=== PATIENT | female | born 1935 | race Caucasian/White ===

== ENCOUNTER → 2017-08-24 | Day surgery (SDC) | payer MEDICARE, BC ==
[2017-08-24 11:48] VITALS: RESP 16; BMI 18.8
[2017-08-24 13:45] VITALS: BP 137/73; PULSE 64; TEMP 97.6
--- NOTE | 2017-08-24 14:04 | USB ---
ULTRASOUND GUIDED CORE BIOPSY RIGHT BREAST: CLINICAL HISTORY: Abnormal ultrasound FINDINGS: The procedure was explained to the patient. The risks, complications, benefits and alternatives were discussed and any questions were answered. Informed consent was obtained. Patient was placed supine on the ultrasound table and prepped and draped in the usual sterile fashion. Utilizing a 14 gauge needle, five passes were made into the area of concern in the subareolar portion right breast. Previously reported 5:00 lesion was not seen or reproducible on today's exam and therefore cannot be biopsied. Biopsy clip was placed post procedural and subsequent mammogram demonstrated the clip to be in ideal position. Patient was stable throughout the procedure. Pathology is pending. All elements of maximal barrier and sterile technique were utilized. IMPRESSION: 1. Successful ultrasound guided core biopsy of the subareolar right breast requested lesion. Pathology Results: Benign BREAST, RIGHT, CORE BIOPSY: BENIGN BREAST AND FIBROADIPOSE TISSUE WITH PROMINENT FIBROSIS. Recommendation Follow up ultrasound of the right breast in 6 months. Surgical consult to assess nipple discharge symptoms. MALVIN
--- NOTE | 2017-08-24 14:25 | MM ---
Reason for exam: additional evaluation requested from abnormal screening. Last mammogram was performed 1 month ago. History: Patient is postmenopausal and has history of other cancer at age 39. Took estrogen for 15 years. MG Diagnostic Mammo RT Wo CAD CC and MLO view(s) were taken of the right breast. Prior study comparison: July 28, 2017, bilateral MG 3d diag mammo w/cad JANIE. July 27, 2016, bilateral MG 3d screening mammo w/cad. ASSESSMENT: Post procedure mammogram for marker placement RECOMMENDATION: Ultrasound of the right breast in 6 months. PENDING PATHOLOGY RESULTS.
== END ==
LOC: RADUSWWP 11:15
PROVIDERS: ATTEND Surgery
DX: N60.31 Fibrosclerosis of right breast (principal); Z78.0 Asymptomatic menopausal state; Z85.9 Personal history of malignant neoplasm, unspecified
CPT/HCPCS: 88305; 77065; 19083; A4648; J2001

== ENCOUNTER 2019-05-14 07:27 | Emergency (ER) | payer MEDICARE, BC ==
--- NOTE | 2019-05-14 08:31 | CT ---
EXAMINATION TYPE: CT brain donis donahue con DATE OF EXAM: 05/14/2019 COMPARISON: Previous study dated 03/07/2016. HISTORY: Fall today. head and neck pain CT DLP: 1297.3 mGycm Automated exposure control for dose reduction was used. TECHNIQUE: CT scan of the head and cervical spine are performed without contrast. FINDINGS: BRAIN: There are generalized changes of sulcal prominence and ventriculomegaly, compatible with atrop hic change. There is diffuse periventricular white matter lucency, compatible with chronic white mamie er ischemic change. There is no acute focal lesion, mass effect or midline shift identified. I do not see evidence of intracranial blood. Visualized portions of the paranasal sinuses and mastoids are clear. The bony calvarium is intact. IMPRESSION: 1. NO ACUTE INTRACRANIAL ABNORMALITY. 2. DEGENERATIVE CHANGE. CERVICAL SPINE: Visualized portions of the lungs are clear. Prevertebral soft tissues are normal. There is a loss of the normal cervical lordosis. There is a minimal anterolisthesis of C3 on C4 and a n antegrade and grade 1 listhesis of C5 on C6. Alignment is otherwise maintained. Atlantoaxial relati onships are normal. There is diffuse degenerative disc disease and hypertrophic spondylosis throughou t the cervical spine with relative sparing C2-3 level. There is mild, diffuse degenerative disc disea se. There is mild facet arthropathy at C3-4 level. There is right-sided facet arthropathy at C4-5 lev el. No definite protrusion is seen. There is a wedge compression fracture of the T3 vertebral body. T his is wedged by approximately 30%. This was not visualized on the previous examination as the study did not extend this far inferiorly. It appears is likely chronic on this study. No other fractures ar e seen. IMPRESSION: 1. 30% WEDGE COMPRESSION FRACTURE OF THE T3 VERTEBRAL BODY, AGE NOT DETERMINED. PLEASE CORRELATE CLIN ICALLY. 2. DEGENERATIVE CHANGE.
--- NOTE | 2019-05-14 09:07 | ED ---
Fall HPI - General Chief Complaint: Fall Stated Complaint: Fall Time Seen by Provider: 05/14/19 07:32 Source: patient Mode of arrival: EMS - History of Present Illness Initial Comments: 83 year old female presents emergency department for chief complaint of fall. Patient states that she has a bedside commode which she is supposed to use ever she wants walk to the bathroom she states that she used her walker lost her balance falling onto her bottom. Patient complaining of low back pain. Denies hip pain. Denies knee, ankle or UE pain. Patient states she did not have neck pain until the c-collar was applied, she states it is very uncomfortable especially with her head tremors (history of possible parkinsons). Patient denies any headache dizziness. Patient has a chest pain shortness of breath, visual changes. Patient unsure if she hit her head. Denies LOC. Denies anticoagulation use. Patient has no other complaints. Appears well on arrival c- collar in place. - Related Data Home Medications Medication Instructions Recorded Confirmed Latanoprost Ophth [Xalatan 0.005%] 1 drops BOTH EYES HS 03/07/16 05/14/19 Levothyroxine Sodium [Tirosint] 25 mcg PO DAILY 03/07/16 05/14/19 Donepezil [Aricept] 10 mg PO DAILY 05/14/19 05/14/19 QUEtiapine [SEROquel] 12.5 mg PO DAILY@1600 05/14/19 05/14/19 Allergies Allergy/AdvReac Type Severity Reaction Status Date / Time codeine AdvReac Nausea & Verified 05/14/19 08:10 Vomiting Review of Systems ROS Statement: Those systems with pertinent positive or pertinent negative responses have been documented in the HPI. ROS Other: All systems not noted in ROS Statement are negative. Past Medical History Past Medical History: Dementia, Thyroid Disorder Additional Past Medical History / Comment(s): alzheimers History of Any Multi-Drug Resistant Organisms: None Reported Past Surgical History: Section, Hysterectomy Past Anesthesia/Blood Transfusion Reactions: No Reported Reaction Past Psychological History: No Psychological Hx Reported Smoking Status: Never smoker Past Alcohol Use History: None Reported Past Drug Use History: None Reported General Exam - General Exam Comments Initial Comments: General: The patient is awake and alert, in no distress, and does not appear acutely ill. Eye: +3 mm pupils are equal, round and reactive to light, extra-ocular movements are intact. No nystagmus. No APD. There is normal conjunctiva bilaterally. No signs of icterus. Ears, nose, mouth and throat: There are moist mucous membranes and no oral lesions. No raccoon or Freitas sign. No scalp contusions abrasions or lacerations. Neck: The neck is supple, there is no tenderness or JVD. Cardiovascular: There is a regular rate and rhythm. No murmur, rub or gallop is appreciated. Respiratory: Lungs are clear to auscultation, respirations are non-labored, breath sounds are equal. No wheezes, stridor, rales, or rhonchi. Gastrointestinal: Soft, non-distended, non-tender abdomen without masses or organomegaly noted. There is no rebound or guarding present. Musculoskeletal: Normal inspection of the cervical thoracic and lumbar spine. Patient has pain over the upper lumbar spine. Patient has no thoracic pain no midline tenderness to patient the cervical spine or paravertebral. Normal ROM, no tenderness. Strength 5/5 of the LE b/l able to stand but pain with walking. Sensation intact of the LE b/l including saddle region. Radial pulses equal bilaterally 2+. Neurological: A&O x 2 difficulty with date (normal per ). CN II-XII int act, There are no obvious motor or sensory deficits. Hand tremors. Speech is normal. Head tremor Skin: Skin is warm and dry and no rashes or lesions are noted. Psychiatric: Cooperative, appropriate mood & affect, normal judgment. Limitations: altered mental status Course Vital Signs 05/14/19 05/14/19 05/14/19 07:31 09:52 11:06 Temperature 97.6 F Pulse Rate 77 81 62 Respiratory 20 18 18 Rate Blood Pressure 147/80 138/74 118/59 O2 Sat by Pulse 96 94 L 94 L Oximetry 05/14/19 12:45 Temperature 98 F Pulse Rate 68 Respiratory 18 Rate Blood Pressure 120/78 O2 Sat by Pulse 98 Oximetry Medical Decision Making - Medical Decision Making 83-year-old female presenting for chief complaint of fall. Patient denies head injury however she states she is not certain. Patient does have history of dementia. No loss of conscious. No anticoagulation use. Patient states his mechanical fall she lost her balance when using her walker to ambulate. Patient has traumatic examination otherwise is no focalizing neurological symptoms. Patient states she fell on her bottom complaining of low back pain there is point localized midline lumbar pain. X-rays reveal a possible acute L1 fracture I feel this clinically correlates to be acute. We contacted on-call orthopedic surgeon physician hotel administrative assistant Amado Cruz who spoke with his attending reviewed imaging studies. He recommended LSO brace and f/u in office. Patient guardian requesting discharge home. Patient stays at a [facility]. Patient is agreeable with this care plan, refuses pain medications stating codeine makes her itch, patient instructed to take ibuprofen outpatient. Patient cased discussed with Dr. Pepe who reviewed imaging studies and reports. He is agreeable with discharge at this time. Disposition Clinical Impression: Fall, L1 vertebral fracture, Compression fracture of T3 vertebra Disposition: HOME SELF-CARE Condition: Good Instructions (If sedation given, give patient instructions): Vertebral Compression Fracture (ED), Fall Prevention for Older Adults (ED) Additional Instructions: Please use medication as discussed. Please follow-up with family doctor in the next 2 days, and Dr Dave in office in 1-2 weeks. Please keep brace on while ambulating. Please return to emergency room if the symptoms increase or worsen or for any other concerns. Is patient prescribed a controlled substance at d/c from ED?: No Referrals: Alphonso Berrios MD [Primary Care Provider] - 1-2 days Alyx Dave DO [Doctor of Osteopathic Medicine] - 1-2 days Time of Disposition: 12:20
--- NOTE | 2019-05-14 09:26 | XR ---
EXAMINATION TYPE: XR chest 2V DATE OF EXAM: 05/14/2019 HISTORY: fall. REFERENCE: Previous study dated 03/14/2010. FINDINGS: There is minimal left basilar atelectasis. The lungs are otherwise clear. Pleural spaces ar e clear. The heart is mildly enlarged. No acute osseous lesion is seen. IMPRESSION: 1. PLATELIKE ATELECTASIS, LEFT LUNG BASE. 2. MILD CARDIOMEGALY.
--- NOTE | 2019-05-14 09:27 | XR ---
EXAMINATION TYPE: XR pelvis AP view , ONE VIEW DATE OF EXAM ORDERED: 05/14/2019 HISTORY: fall low back pain. COMPARISON: None. FINDINGS: Bony structures about the pelvis are unremarkable. No fracture or dislocation is seen. Hip joints are maintained. IMPRESSION: NORMAL PELVIS.
--- NOTE | 2019-05-14 09:29 | XR ---
EXAMINATION TYPE: XR lumbar spine 2 or 3V , 3 VIEWS DATE OF EXAM ORDERED: 05/14/2019 HISTORY: pain. COMPARISON: None. FINDINGS: There is a degenerative grade 1 bordering on grade 2 spondylolisthesis of L4 on L5. Verteb ral body height and alignment are otherwise maintained. There are superior endplate infractions at T1 2 and L1, age not determined. There is no spondylolisthesis. There is facet arthropathy at L4-5 and L 5-S1. The pedicles are intact. Incidental note is made of calcification of the right upper quadrant which may represent gallstones. IMPRESSION: 1. SUPER ENDPLATE INFRACTIONS OF T12 AND L1, AGE NOT DETERMINED. 2. 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 3. PROBABLE CHOLELITHIASIS
[2019-05-14 09:58] VITALS: RESP 18
--- NOTE | 2019-05-14 10:31 | CT ---
EXAMINATION TYPE: CT lumbar spine wo con DATE OF EXAM: 05/14/2019 10:18 AM COMPARISON: None. HISTORY: L1 FX, Fall CT DLP: 462.8 mGycm Automated exposure control for dose reduction was used. Unenhanced CT of the lumbar spine was performed. Bone and soft tissue window settings are submitted as well as coronal and sagittal reconstructions. FINDINGS: There are tiny, bilateral pleural effusions with associated relaxation atelectasis. The hea rt is enlarged. Paraspinal soft tissues are otherwise unremarkable. At T11-12, there is a superior endplate of fracture and the T12 vertebral body. This appears chronic. There is no paraspinal soft tissue mass or clear fracture line visible. At T12-L1, there is a superior endplate infraction of T12. There is a faint fracture line through the vertebral body. I'm unsure the chronicity of this lesion. There is no paraspinal soft tissue mass. L1-L2: No definite abnormality is seen. L2-L3: There is a diffuse disc displacement. Intervertebral foramina are well maintained. There is mi ld hypertrophic change in the facets. L3-L4: Intervertebral foramina are widely patent. There is a broad-based disc protrusion. There is hy pertrophic changes in the facets. There is moderate central canal stenosis. L4-L5: There is a grade 1 bordering on grade 2 degenerative spondylolisthesis of L4 and L5. There is a prominent pseudodisc. There are marked hypertrophic changes within the facets. Intervertebral augustus kaylin appear maintained. L5-S1: There is degenerative disc disease. There is no cyst significant compressive discopathy. Inter vertebral foramina appear well maintained. There are hypertrophic changes IMPRESSION: 1. SEVERE WEDGE COMPRESSION FRACTURE OF T11 APPEARS CHRONIC. 2. SUPERIOR ENDPLATE INFRACTION OF L1 IS AGE-INDETERMINATE. FRACTURE LINE IS STILL VISIBLE WITHOUT PA RASPINAL HEMATOMA OR SOFT TISSUE MASS. 3. DEGENERATIVE DISC DISEASE AND FACET ARTHROPATHY THROUGHOUT THE LUMBAR SPINE. 4. GRADE 1 BORDERING ON GRADE 2 SPONDYLOLISTHESIS OF L4 ON L5 WHICH IS DEGENERATIVE. 5. MODERATE CENTRAL CANAL STENOSIS, L3-4 6. SMALL, BILATERAL PLEURAL EFFUSIONS.
[2019-05-14 12:46] VITALS: BP 120/78; PULSE 68; TEMP 98
== END 2019-05-14 12:45 | disposition home or self-care (01) ==
LOC: EC 07:27
DX: S22.030A Wedge compression fracture of third thoracic vertebra, initial encounter for closed fracture (principal); S32.010A Wedge compression fracture of first lumbar vertebra, initial encounter for closed fracture; R07.9 Chest pain, unspecified; R06.02 Shortness of breath; H53.8 Other visual disturbances; G30.9 Alzheimer's disease, unspecified; F02.80 Dementia in other diseases classified elsewhere, unspecified severity, without behavioral disturbance, psychotic disturbance, mood disturbance, and anxiety; E07.9 Disorder of thyroid, unspecified; Z88.5 Allergy status to narcotic agent; Z79.890 Hormone replacement therapy; Z79.899 Other long term (current) drug therapy; W18.11XA Fall from or off toilet without subsequent striking against object, initial encounter; Y93.01 Activity, walking, marching and hiking; Y92.002 Bathroom of unspecified non-institutional (private) residence as the place of occurrence of the external cause
CPT/HCPCS: 70450; 71046; 72100; 72125; 72131; 72170; 99284

== ENCOUNTER 2019-08-12 19:24 | Inpatient (IN) | payer MEDICARE, BC ==
[2019-08-12 20:03] LABS: Basophils # (A) 0.1 k/uL (0-0.2); Basophils % (A) 1 %; Eosinophils # (A) 0.2 k/uL (0-0.7); Eosinophils % (A) 2 %; HCT 39.3 % (34.0-46.0); HGB 12.5 gm/dL (11.4-16.0); Lymphocytes # (A) 1.7 k/uL (1.0-4.8); Lymphocytes % (A) 24 %; MCH 29.8 pg (25.0-35.0); MCHC 31.7 g/dL (31.0-37.0); MCV 93.8 fL (80.0-100.0); Mean Platelet Volume 8.4; Monocytes # (A) 0.5 k/uL (0-1.0); Monocytes % (A) 8 %; Neutrophils # (A) 4.4 k/uL (1.3-7.7); Neutrophils % (A) 63 %; Platelet Count 240 k/uL (150-450); RBC 4.18 m/uL (3.80-5.40); RDW 12.9 % (11.5-15.5)
--- NOTE | 2019-08-12 20:11 | XR ---
EXAMINATION TYPE: XR chest 2V DATE OF EXAM: 08/12/2019 COMPARISON: 05/14/2019 HISTORY: Chest pain TECHNIQUE: 2 views FINDINGS: There is no heart failure nor confluent pneumonic infiltrate. Costophrenic angles are clear . Thoracic aorta is atheromatous. Bony thorax is intact. IMPRESSION: No active cardiopulmonary disease. No change.
[2019-08-12 20:15] LABS: Albumin 3.9 g/dL (3.5-5.0); Magnesium 2.2 mg/dL (1.6-2.3); Potassium 4.7 mmol/L (3.5-5.1); Total Bilirubin 0.3 mg/dL (0.2-1.3); Total Protein 6.9 g/dL (6.3-8.2)
[2019-08-12 20:22] LABS: Partial Thromboplastin Time 23.9 sec (22.0-30.0); Prothrombin Time 10.4 sec (9.0-12.0)
[2019-08-12] MEDS ORDERED: SODIUM CHLORIDE 0.9% 500 ML 500 ML IV STA (20:43)
--- NOTE | 2019-08-12 21:46 | ED ---
General Adult HPI - General Source: patient, family, RN notes reviewed Mode of arrival: ambulatory Limitations: altered mental status <Frank Hernandez P - Last Filed: 08/12/19 21:47> <Monica Uriarte P - Last Filed: 08/13/19 05:53> - General Chief complaint: Chest Pain Stated complaint: Chest pain Time Seen by Provider: 08/12/19 20:08 - History of Present Illness Initial comments: 83-year-old female with a past medical history of Alzheimer's presents to the emergency department for a chief complaint of chest pain. Patient started to experience chest pain about 2 hours prior to arrival. States he was a sharp pain in the anterior chest. Denies shortness of breath. Patient denies any cardiac history. Patient is staying at an adult foster care facility and they called an ambulance. Patient was given aspirin in the EMS. Upon presentation to the emergency department pain has resolved. Patient does not have cardiac history. Patient does not know of any previous cardiac catheterizations or echo.Patient has no other complaints at this time including shortness of breath, abdominal pain, nausea or vomiting, headache, or visual changes. (Frank Hernandez) - Related Data Home Medications Medication Instructions Recorded Confirmed Latanoprost Ophth [Xalatan 0.005%] 1 drops BOTH EYES HS@1900 03/07/16 08/12/19 Levothyroxine Sodium [Tirosint] 25 mcg PO DAILY@0703/07/16 08/12/19 Donepezil [Aricept] 10 mg PO DAILY@69905/14/19 08/12/19 QUEtiapine [SEROquel] 37.5 mg PO DAILY@69905/14/19 08/12/19 Evaristo/D3/Mag11/Zinc/Animal Assisted Therapist/Trevor/Bor 1 tab PO DAILY@69908/12/19 08/12/19 [Caltrate 600+D Plus Tablet] Cholecalciferol (Vitamin D3) 2,000 unit PO DAILY@69908/12/19 08/12/19 [Vitamin D3] Docusate [Colace] 100 mg PO DAILY@0708/12/19 08/12/19 Escitalopram [Lexapro] 10 mg PO DAILY@0708/12/19 08/12/19 Ibuprofen [Motrin] 400 mg PO QID@04,10,16,22 08/12/19 08/12/19 QUEtiapine [SEROquel] 50 mg PO DAILY@1600 08/12/19 08/12/19 Allergies Allergy/AdvReac Type Severity Reaction Status Date / Time codeine AdvReac Nausea & Verified 08/12/19 22:19 Vomiting Review of Systems ROS Other: All systems not noted in ROS Statement are negative. <Frank Hernandez P - Last Filed: 08/12/19 21:47> ROS Other: All systems not noted in ROS Statement are negative. <Monica Uriarte P - Last Filed: 08/13/19 05:53> ROS Statement: Those systems with pertinent positive or pertinent negative responses have been documented in the HPI. Past Medical History Past Medical History: Dementia, Thyroid Disorder Additional Past Medical History / Comment(s): alzheimers History of Any Multi-Drug Resistant Organisms: None Reported Past Surgical History: Section, Hysterectomy Past Anesthesia/Blood Transfusion Reactions: No Reported Reaction Past Psychological History: No Psychological Hx Reported Smoking Status: Never smoker Past Alcohol Use History: None Reported Past Drug Use History: None Reported <Frank Hernandez P - Last Filed: 08/12/19 21:47> General Exam Limitations: altered mental status General appearance: alert, in no apparent distress Head exam: Present: atraumatic, normocephalic, normal inspection Eye exam: Present: normal appearance, PERRL, EOMI. Absent: scleral icterus, c onjunctival injection, periorbital swelling ENT exam: Present: normal exam, mucous membranes moist Neck exam: Present: normal inspection, full ROM. Absent: tenderness, meningismus, lymphadenopathy Respiratory exam: Present: normal lung sounds bilaterally. Absent: respiratory distress, wheezes, rales, rhonchi, stridor Cardiovascular Exam: Present: regular rate, normal rhythm, normal heart sounds. Absent: systolic murmur, diastolic murmur, rubs, gallop, clicks GI/Abdominal exam: Present: soft, normal bowel sounds. Absent: distended, tenderness, guarding, rebound, rigid Neurological exam: Present: alert <Frank Hernandez P - Last Filed: 08/12/19 21:47> Course Vital Signs 08/12/19 08/12/19 08/12/19 19:25 21:05 21:10 Temperature 98.2 F 97.6 F Pulse Rate 64 59 L Respiratory 18 18 Rate Blood Pressure 144/65 91/52 136/61 O2 Sat by Pulse 95 96 Oximetry 08/12/19 08/12/19 08/13/19 21:50 23:39 04:03 Temperature 97.9 F 97.9 F Pulse Rate 60 57 L 59 L Respiratory 16 16 16 Rate Blood Pressure 152/65 146/63 145/62 O2 Sat by Pulse 97 95 95 Oximetry Medical Decision Making - Lab Data Result diagrams: 08/12/19 19:58 08/12/19 19:58 <Frank Hernandez - Last Filed: 08/12/19 21:47> - Lab Data Result diagrams: 08/12/19 19:58 08/12/19 19:58 <Monica Uriarte - Last Filed: 08/13/19 05:53> - Medical Decision Making Vitals are stable. There is 1 according of hypotension with a blood pressure of 91/52 however this was repeated shortly after and was 136/61. Patient's pain had resolved upon my seeing her. CBC is unremarkable. CMP does show some evidence of dehydration. Troponin negative. X-ray shows no active cardi opulmonary disease. EKG shows a normal sinus rhythm with a ventricular rate of 60. No ST elevation or depression. Given recent onset of chest pain within 3 hours of arrival patient will be admitted for trending troponin and cardiology consultation. Discussed this case with Dr. Uriarte (Frank Hernandez) I personally saw and evaluated the patient, this is a pleasantly demented hemodynamically stable 83-year-old who had reported chest pain. Labs are relatively unremarkable there is some signs of dehydration IV fluids were ordered. Patient will be patient and observation of her sterile troponins and evaluation by cardiology. (Monica Uriarte) - Lab Data Lab Results 08/12/19 08/12/19 08/12/19 Range/Units 19:58 19:58 19:58 WBC 7.0 (3.8-10.6) k/uL RBC 4.18 (3.80-5.40) m/uL Hgb 12.5 (11.4-16.0) gm/dL Hct 39.3 (34.0-46.0) % MCV 93.8 (80.0-100.0) fL MCH 29.8 (25.0-35.0) pg MCHC 31.7 (31.0-37.0) g/dL RDW 12.9 (11.5-15.5) % Plt Count 240 (150-450) k/uL Neutrophils % 63 % Lymphocytes % 24 % Monocytes % 8 % Eosinophils % 2 % Basophils % 1 % Neutrophils # 4.4 (1.3-7.7) k/uL Lymphocytes # 1.7 (1.0-4.8) k/uL Monocytes # 0.5 (0-1.0) k/uL Eosinophils # 0.2 (0-0.7) k/uL Basophils # 0.1 (0-0.2) k/uL PT 10.4 (9.0-12.0) sec INR 1.0 (<1.2) APTT 23.9 (22.0-30.0) sec Sodium 138 (137-145) mmol/L Potassium 4.7 (3.5-5.1) mmol/L Chloride 106 (98-107) mmol/L Carbon Dioxide 25 (22-30) mmol/L Anion Gap 7 mmol/L BUN 28 H (7-17) mg/dL Creatinine 1.12 H (0.52-1.04) mg/dL Est GFR (CKD-EPI)AfAm 52 (>60 ml/min/1.73 sqM) Est GFR (CKD-EPI)NonAf 45 (>60 ml/min/1.73 sqM) Glucose 100 H (74-99) mg/dL Calcium 10.0 (8.4-10.2) mg/dL Magnesium 2.2 (1.6-2.3) mg/dL Total Bilirubin 0.3 (0.2-1.3) mg/dL AST 31 (14-36) U/L ALT 18 (4-34) U/L Alkaline Phosphatase 66 (38-126) U/L Troponin I (0.000-0.034) ng/mL Total Protein 6.9 (6.3-8.2) g/dL Albumin 3.9 (3.5-5.0) g/dL 08/12/19 Range/Units 19:58 WBC (3.8-10.6) k/uL RBC (3.80-5.40) m/uL Hgb (11.4-16.0) gm/dL Hct (34.0-46.0) % MCV (80.0-100.0) fL MCH (25.0-35.0) pg MCHC (31.0-37.0) g/dL RDW (11.5-15.5) % Plt Count (150-450) k/uL Neutrophils % % Lymphocytes % % Monocytes % % Eosinophils % % Basophils % % Neutrophils # (1.3-7.7) k/uL Lymphocytes # (1.0-4.8) k/uL Monocytes # (0-1.0) k/uL Eosinophils # (0-0.7) k/uL Basophils # (0-0.2) k/uL PT (9.0-12.0) sec INR (<1.2) APTT (22.0-30.0) sec Sodium (137-145) mmol/L Potassium (3.5-5.1) mmol/L Chloride (98-107) mmol/L Carbon Dioxide (22-30) mmol/L Anion Gap mmol/L BUN (7-17) mg/dL Creatinine (0.52-1.04) mg/dL Est GFR (CKD-EPI)AfAm (>60 ml/min/1.73 sqM) Est GFR (CKD-EPI)NonAf (>60 ml/min/1.73 sqM) Glucose (74-99) mg/dL Calcium (8.4-10.2) mg/dL Magnesium (1.6-2.3) mg/dL Total Bilirubin (0.2-1.3) mg/dL AST (14-36) U/L ALT (4-34) U/L Alkaline Phosphatase (38-126) U/L Troponin I <0.012 (0.000-0.034) ng/mL Total Protein (6.3-8.2) g/dL Albumin (3.5-5.0) g/dL Disposition Is patient prescribed a controlled substance at d/c from ED?: No Time of Disposition: 21:49 <Frank Hernandez P - Last Filed: 08/12/19 21:47> <Monica Uriarte P - Last Filed: 08/13/19 05:53> Clinical Impression: Chest pain Disposition: ADMITTED IP TO THIS HOSP Condition: Fair
[2019-08-12] MEDS ORDERED: NITROGLYCERIN SL TABS 0.4 MG TAB SUBLINGUAL PRN (21:50)
--- NOTE | 2019-08-13 00:34 | P.HPIM ---
History of Present Illness H&P Date: 08/12/19 The patient is an 83-year-old female with a PMH of Alzheimer's dementia, and hypothyroidism who presented to the ED from an adult foster care facility due to chest pain. Due to the patient's dementia, the history is somewhat limited, though the patient was able to answer most questions. She reports that her chest pain started 2 hours prior to arrival to the ED, while she was sitting and watching television. The pain was 8/10, substernal, sharp, nonradiating, with some associated shortness of breath. She denied any associated nausea, vomiting, diaphoresis, dizziness, or palpitations. She reports that she may have had similar episodes in the past though they were not nearly as severe. Th e pain resolved shortly after coming to the emergency room and after having received nitroglycerin. At time of interview, she reported that she feels back to baseline and had no active complaints. She denied cough, fever, chills, leg pain. She walks with a walker though has had several falls in the past. She underwent an extensive evaluation in the emergency room with EKG showing normal sinus rhythm at [address]/T-wave changes noted. Chest x-ray was unremarkable. Laboratory evaluation revealed a WBC count of 7.0, hemoglobin 12.5, platelets 240, sodium 138, potassium 4.7, chloride 106, CO2 25, BUN 28, creatinine 1.12, and glucose 100. She is being admitted to the medicine service for further management of chest pain. Review of Systems Pertinent positives and negatives as discussed in HPI, a complete review of systems was performed and all other systems are negative. Past Medical History Past Medical History: Dementia, Thyroid Disorder Additional Past Medical History / Comment(s): alzheimers History of Any Multi-Drug Resistant Organisms: None Reported Past Surgical History: Section, Hysterectomy Past Anesthesia/Blood Transfusion Reactions: No Reported Reaction Past Psychological History: No Psychological Hx Reported Smoking Status: Never smoker Past Alcohol Use History: None Reported Past Drug Use History: None Reported Medications and Allergies Home Medications Medication Instructions Recorded Confirmed Type Latanoprost Ophth [Xalatan 0.005%] 1 drops BOTH EYES HS@1900 03/07/16 08/12/19 History Levothyroxine Sodium [Tirosint] 25 mcg PO DAILY@0700 03/07/16 08/12/19 History Donepezil [Aricept] 10 mg PO DAILY@0700 05/14/19 08/12/19 History QUEtiapine [SEROquel] 37.5 mg PO DAILY@0700 05/14/19 08/12/19 History Evaristo/D3/Mag11/Zinc/Stud Driver/Trevor/Bor 1 tab PO DAILY@0700 08/12/19 08/12/19 History [Caltrate 600+D Plus Tablet] Cholecalciferol (Vitamin D3) 2,000 unit PO DAILY@0700 08/12/19 08/12/19 History [Vitamin D3] Docusate [Colace] 100 mg PO DAILY@0700 08/12/19 08/12/19 History Escitalopram [Lexapro] 10 mg PO DAILY@0700 08/12/19 08/12/19 History Ibuprofen [Motrin] 400 mg PO QID@04,10,16,22 08/12/19 08/12/19 History QUEtiapine [SEROquel] 50 mg PO DAILY@1600 08/12/19 08/12/19 History Allergies Allergy/AdvReac Type Severity Reaction Status Date / Time codeine AdvReac Nausea & Verified 08/12/19 22:19 Vomiting Physical Exam Vitals: Vital Signs Temp Pulse Resp BP Pulse Ox 08/12/19 23:39 97.9 F 57 L 16 146/63 95 08/12/19 21:50 60 16 152/65 97 08/12/19 21:10 136/61 08/12/19 21:05 97.6 F 59 L 18 91/52 96 08/12/19 19:25 98.2 F 64 18 144/65 95 Intake and Output 08/12/19 08/12/19 08/13/19 14:59 22:59 06:59 Other: Weight 68.039 kg General: non toxic, no distress, appears at stated age Derm: no unusual rashes/lesions no unusual ecchymoses, warm, dry Head: atraumatic, normocephalic, symmetric Eyes: EOMI, no lid lag, anicteric sclera, pupils equal round reactive to light ENT: Nose and ears atraumatic, no thrush, no pharyngeal erythema Neck: No thyromegaly, no cervical lymphadenopathy, trachea midline, supple Mouth: no lip lesion, mucus membranes dry Cardiovascular: S1S2 reg, no murmur, positive posterior tibial pulse bilateral, no edema, capillary refill less than 2 seconds Lungs: CTA bilateral, no rhonchi, no rales , no accessory muscle use Abdominal: soft, nontender to palpation, no guarding, no appreciable organomeg rochelle, normal bowel sounds Ext: no gross muscle atrophy, muscle strength 5 out of 5 in all 4 extremities grossly, no contractures, Neuro: Head tremor along with hypokinesis diffusely, CN II-XI grossly intact, light touch intact all 4 extremities, mild intention tremor during finger to nose testing Psych: Alert, awake, oriented to self and place, is able to name the hospital, though believes it is 2014 Results CBC & Chem 7: 08/12/19 19:58 08/12/19 19:58 Labs: Abnormal Lab Results - Last 24 Hours (Table) 08/12/19 Range/Units 19:58 BUN 28 H (7-17) mg/dL Creatinine 1.12 H (0.52-1.04) mg/dL Glucose 100 H (74-99) mg/dL Assessment and Plan Plan: Chest pain, rule out ACS -Continue with aspirin and nitroglycerin when necessary -Cardiac monitoring -Cardiology consult -Trend troponin MICHELLE -Likely due to dehydration -Monitor BMP -C/w gentle hydration Chronic conditions: Alzheimer's dementia, hypothyroidism -Continue with home meds -Fall precautions DVT prophylaxis -Heparin subq The patient is admitted with an anticipated less than 2 midnight stay for ev aluation of chest pain CODE STATUS: Full Code Discussed with: Patient Anticipated discharge date: 1-[address]: Adult foster care A total of 35 minutes was spent on the care of this complex patient more than 50% of the time was spent in counseling and care coordination.
[2019-08-13 08:51] LABS: Calcium 9.5 mg/dL (8.4-10.2); Potassium 4.4 mmol/L (3.5-5.1)
[2019-08-13] MEDS: DONEPEZIL 10 MG TAB PO SCH (08:53)
[2019-08-13] MEDS: LEVOTHYROXINE 25 MCG TAB PO SCH (08:53)
[2019-08-13] MEDS: ESCITALOPRAM 10 MG TAB PO SCH (08:53)
[2019-08-13] MEDS: DOCUSATE 100 MG CAP PO SCH (08:53)
[2019-08-13] MEDS: HEPARIN SODIUM,PORCINE 5,000 UNIT/ML 1 ML VIAL SQ SCH ×3 (08:57→23:44)
[2019-08-13] MEDS: QUEtiapine 25 MG TAB PO SCH ×2 (09:00→16:08)
[2019-08-13] MEDS ORDERED: ASPIRIN 325 MG TAB PO SCH (09:00)
--- NOTE | 2019-08-13 09:46 | P.PN ---
Subjective Progress Note Date: 08/13/19 Principal diagnosis: Chest pain Patient has not had any further episodes of chest pain since coming in. No shortness of breath. Objective - Vital Signs Vital signs: Vital Signs Temp 97.3 F L 08/13/19 07:23 Pulse 66 08/13/19 07:23 Resp 18 08/13/19 07:23 BP 171/75 08/13/19 07:23 Pulse Ox 95 08/13/19 07:23 Intake & Output 08/12/19 08/13/19 08/13/19 18:59 06:59 18:59 Weight 68.039 kg Other: # Voids 1 - Exam Constitutional: No acute distress, conversant, pleasant Eyes:Anicteric sclerae, moist conjunctiva, no lid-lag, PERRLA, ENMT: Oropharynx clear, no erythema, exudates Neck: Supple, FROM, no masses, or JVD, No carotid bruits, No thyromegaly Lungs: Clear to auscultation, Clear to percussion, Normal respiratory effort, no accessory muscle use Cardiovascular: Heart regular in rate and rhythm, No murmurs, gallops, or rubs, No peripheral edema Abdominal: Soft, Nontender, no guarding, rebound or rigidity, Normoactive bowel sounds, No hepatomegaly, No splenomegaly, No palpable mass Skin: Normal temperature, tone, texture, turgor, no induration, No subcutaneous nodules, No rash, lesions, No ulcers Extremities: No digital cyanosis, No clubbing, Pedal pulses intact and symmetrical, Radial pulses intact and symmetrical, No calf tenderness Psychiatric: Alert and oriented to person, place and time, appropriate affect, intact judgement Neuro: Muscles Strength 5/5 in all 4 extremities, Sensation to light touch grossly present throughout, Cranial nerves II-XII grossly intact, no focal sensory deficits - Labs CBC & Chem 7: 08/12/19 19:58 08/13/19 07:47 Labs: Abnormal Lab Results - Last 24 Hours (Table) 08/12/19 08/13/19 Range/Units 19:58 07:47 Chloride 108 H (98-107) mmol/L BUN 28 H 21 H (7-17) mg/dL Creatinine 1.12 H (0.52-1.04) mg/dL Glucose 100 H (74-99) mg/dL HDL Cholesterol 97 H (40-60) mg/dL Assessment and Plan Plan: Chest pain, rule out ACS -Continue with aspirin and nitroglycerin when necessary -Cardiac monitoring -Cardiology consulted -Troponin trended, negative MICHELLE -Resolved -C/w gentle hydration Chronic conditions: Alzheimer's dementia, hypothyroidism -Continue with home meds -Fall precautions DVT prophylaxis -Heparin subq Anticipated discharge date: 1-[address]: Adult foster care
--- NOTE | 2019-08-13 13:02 | P.CRDCN ---
History of Present Illness Consult date: 08/13/19 Reason for Consult (text): Chest pain Consult reason: chest pain Chief complaint: Chest pain History of present illness: HISTORY OF PRESENT ILLNESS AND PLAN: This is a 83 -year-old female with history of Alzheimer's dementia type, hypothyroidism, hypertension and recent complaints of chest pain. Patient states she's been experiencing chest pain that is described as anterior mid- sternal and radiates to her neck. Rates pain as 8/10. Patient states chest pain has been occurring for approximately past 2 days on/off with activity. Patient does live in an adult foster care facility and EMS was called upon complaints of chest pain. ASA given upon arrival to facility. Patient is a poor historian. Patient utilizes walker for ambulation. EKG shows sinus rhythm with no acute process. Heart rate 60. Troponin negative 3. Current BP 171/75. Afebrile. Saturation 95% on room air. Patient is currently comfortable resting in bed with no current complaints of chest pain, chest pressure, shortness of breath or palpitations. Patient able to get to the commode with assistance. Patient has not followed with cardiology historically. No smoking. No DM. SIGNIFICANT PAST MEDICAL HISTORY: Alzheimer's dementia type, hypothyroidism and recent complaints of chest pain. PAST SURGICAL HISTORY: See list. EKG = Sinus rhythm no acute process. Heart rate 60. Troponins negative x 3 SIGNIFICANT LABORATORY VALUES: CBC, WNL. BUN 28, CR 1.12. CHOL 168, LDL 60, HDL 97, TRIG 53. Chest x-ray = No acute process. Most recent echo = None available. Most recent stress testing = None available REVIEW OF SYSTEMS: CONSTITUTIONAL: Denies fever. Denies chills. EYES: Denies blurred vision. Denies blurred vision or vision changes. Denies eye pain. EARS, NOSE, MOUTH & THROAT: Denies headache. Denies sore throat. Denies ear pain Denies hemoptysis. CARDIOVASCULAR: Complains of prior chest pain. Complains of prior shortness of breath. Denies orthopnea. Denies PND. Denies palpitations. RESPIRATORY: Denies cough. Complains of prior shortness of breath. GASTROINTESTINAL: Denies abdominal pain or distention. Denies diarrhea. Denies constipation. Denies nausea. Denies vomiting. MUSCULOSKELETAL: Denies myalgias. INTEGUMENTARY: Denies pruitis. Denies rash. ENDOCRINE: Complains of fatigue. Denies weight change. Denies polydipsia. Denies polyurina Denies heat/cold intolerance. GENITOURINARY: Denies burning, hematuria or urgency with micturation. HEMATOLOGIC: Denies history of anemia. Denies bleeding. NEUROLOGIC: Denies numbness. Denies tingling. Complains of weakness. PSYCHIATRIC: Denies anxiety. Denies depression. PHYSICAL EXAM: VITAL SIGNS: 171/75 HR 60. Afebrile. Saturation 95% on room air. GENERAL: Well developed, in no acute distress. HEENT: Head is atraumatic, normocephalic. Pupils are equal, round. Extra ocular movements intact. Mucous membranes moist. Neck supple. No JVD. No carotid bruit. No thyromegaly. LUNGS: Clear to auscultation. No wheezes, rales or rhonchi. No chest wall tenderness on palpation or with deep breathing. HEART: Regular rate and rhythm, no rubs or gallops. S1 and S2 heard. II/ systolic murmur at base with radation to LEFT carotid. ABDOMEN: Abdominal exam, WNL. Bowel sounds x4 quads. Soft, non-tender, without masses, organomegaly, or abdominal aorta enlargement. EXTREMITIES/VASCULAR: Extremities have easily palpable radial, femoral, dorsalis pedis and posterior tibial pulses. No cyanosis, calf tenderness. No BLE edema. NEUROLOGIC: Patient is awake, alert and oriented x3. No focal neurologic abnormalities. FINAL IMPRESSION: 1. Atypical chest pain 2. Hypertension 3. Hypothyroidism 4. Systolic Murmur II/ - echo ordered. 5. Dementia PLAN: Atypical chest pain. Due to pt age and risk factor CAD cannot be ruled out. Pt to echocardiography. Will consider Lexiscan stress testing. START Metoprolol tartrate 12.5 mg daily. START Losartan 50 mg daily. DECREASE ASA to 81 mg daily. STAT D-dimer to rule out PE. Continue SQ Heparin and IV hydration. Continue same all other medical/medication regime. Nurse Practitioner note has been reviewed by the Physician. Signing provider agrees with the documented findings, assessment and plan of care. Past Medical History Past Medical History: Dementia, Thyroid Disorder Additional Past Medical History / Comment(s): alzheimers History of Any Multi-Drug Resistant Organisms: None Reported Past Surgical History: Section, Hysterectomy Past Anesthesia/Blood Transfusion Reactions: No Reported Reaction Past Psychological History: No Psychological Hx Reported Smoking Status: Never smoker Past Alcohol Use History: None Reported Past Drug Use History: None Reported Medications and Allergies Home Medications Medication Instructions Recorded Confirmed Type Latanoprost Ophth [Xalatan 0.005%] 1 drops BOTH EYES HS@1900 03/07/16 08/12/19 History Levothyroxine Sodium [Tirosint] 25 mcg PO DAILY@0700 03/07/16 08/12/19 History Donepezil [Aricept] 10 mg PO DAILY@0700 05/14/19 08/12/19 History QUEtiapine [SEROquel] 37.5 mg PO DAILY@0700 05/14/19 08/12/19 History Evaristo/D3/Mag11/Zinc/Development Director/Trevor/Bor 1 tab PO DAILY@0700 08/12/19 08/12/19 History [Caltrate 600+D Plus Tablet] Cholecalciferol (Vitamin D3) 2,000 unit PO DAILY@0700 08/12/19 08/12/19 History [Vitamin D3] Docusate [Colace] 100 mg PO DAILY@0700 08/12/19 08/12/19 History Escitalopram [Lexapro] 10 mg PO DAILY@0700 08/12/19 08/12/19 History Ibuprofen [Motrin] 400 mg PO QID@04,10,16,22 08/12/19 08/12/19 History QUEtiapine [SEROquel] 50 mg PO DAILY@1600 08/12/19 08/12/19 History Allergies Allergy/AdvReac Type Severity Reaction Status Date / Time codeine AdvReac Nausea & Verified 08/12/19 22:19 Vomiting Physical Exam Vitals: Vital Signs Temp Pulse Resp BP Pulse Ox 08/13/19 12:00 70 18 131/56 100 08/13/19 11:00 72 18 120/60 98 08/13/19 10:30 70 18 122/63 98 08/13/19 07:23 97.3 F L 66 18 171/75 95 08/13/19 06:51 98.1 F 63 17 162/75 95 08/13/19 04:03 97.9 F 59 L 16 145/62 95 08/12/19 23:39 97.9 F 57 L 16 146/63 95 08/12/19 21:50 60 16 152/65 97 08/12/19 21:10 136/61 08/12/19 21:05 97.6 F 59 L 18 91/52 96 08/12/19 19:25 98.2 F 64 18 144/65 95 Intake and Output 08/12/19 08/13/19 08/13/19 22:59 06:59 14:59 Other: # Voids 1 Weight 68.039 kg Results 08/12/19 19:58 08/13/19 07:47 Cardiac Enzymes 08/12/19 08/12/19 08/13/19 Range/Units 19:58 19:58 02:01 AST 31 (14-36) U/L Troponin I <0.012 <0.012 (0.000-0.034) ng/mL 08/13/19 Range/Units 07:47 AST (14-36) U/L Troponin I <0.012 (0.000-0.034) ng/mL Coagulation 08/12/19 Range/Units 19:58 PT 10.4 (9.0-12.0) sec APTT 23.9 (22.0-30.0) sec Lipids 08/13/19 Range/Units 07:47 Triglycerides 53 (<150) mg/dL Cholesterol 168 (<200) mg/dL HDL Cholesterol 97 H (40-60) mg/dL CBC 08/12/19 Range/Units 19:58 WBC 7.0 (3.8-10.6) k/uL RBC 4.18 (3.80-5.40) m/uL Hgb 12.5 (11.4-16.0) gm/dL Hct 39.3 (34.0-46.0) % Plt Count 240 (150-450) k/uL Comprehensive Metabolic Panel 08/12/19 08/13/19 Range/Units 19:58 07:47 Sodium 138 140 (137-145) mmol/L Potassium 4.7 4.4 (3.5-5.1) mmol/L Chloride 106 108 H (98-107) mmol/L Carbon Dioxide 25 27 (22-30) mmol/L BUN 28 H 21 H (7-17) mg/dL Creatinine 1.12 H 0.96 (0.52-1.04) mg/dL Glucose 100 H 81 (74-99) mg/dL Calcium 10.0 9.5 (8.4-10.2) mg/dL AST 31 (14-36) U/L ALT 18 (4-34) U/L Alkaline Phosphatase 66 (38-126) U/L Total Protein 6.9 (6.3-8.2) g/dL Albumin 3.9 (3.5-5.0) g/dL Current Medications Generic Name Dose Route Start Last Admin Trade Name Danielitoq PRN Reason Stop Dose Admin Aspirin 81 mg 08/14/19 09:00 Aspirin PO DAILY [facility] Docusate Sodium 100 mg 08/13/19 07:00 08/13/19 08:53 Colace PO 100 mg DAILY@0700 MARY Administration Donepezil HCl 10 mg 08/13/19 07:00 08/13/19 08:53 Aricept PO 10 mg DAILY@0700 MARY Administration Escitalopram Oxalate 10 mg 08/13/19 07:00 08/13/19 08:53 Lexapro PO 10 mg DAILY@0700 [facility] Administration Heparin Sodium (Porcine) 5,000 unit 08/13/19 08:00 08/13/19 08:57 Heparin SQ 5,000 unit Q8HR MARY Administration Sodium Chloride 1,000 mls @ 50 mls/hr 08/13/19 00:45 Saline 0.9% IV .Q20H [facility] Levothyroxine Sodium 25 mcg 08/13/19 07:00 08/13/19 08:53 Synthroid PO 25 mcg DAILY@0700 [facility] Administration Losartan Potassium 50 mg 08/13/19 12:45 Cozaar PO DAILY [facility] Metoprolol Tartrate 12.5 mg 08/14/19 09:00 Lopressor PO DAILY [facility] Nitroglycerin 0.4 mg 08/12/19 21:50 Nitrostat SUBLINGUAL Q5M PRN Chest Pain Quetiapine Fumarate 37.5 mg 08/13/19 07:00 08/13/19 09:00 Seroquel PO 37.5 mg DAILY@0700 [facility] Administration Quetiapine Fumarate 50 mg 08/13/19 16:00 Seroquel PO DAILY@1600 [facility] Intake and Output 08/12/19 08/13/19 08/13/19 22:59 06:59 14:59 Other: # Voids 1 Weight 68.039 kg 08/12/19 19:58 08/13/19 07:47 - EKG Interpretation EKG: sinus rhythm
[2019-08-13] MEDS: LOSARTAN 50 MG TAB PO SCH (15:07)
[2019-08-13 17:50] VITALS: RESP 16
[2019-08-13] MEDS: SODIUM CHLORIDE 0.9% 1,000 ML IV SCH ×2 (20:30→23:43)
[2019-08-13] MEDS ORDERED: ACETAMINOPHEN TAB 325 MG TAB PO PRN (21:07)
[2019-08-14] MEDS: DONEPEZIL 10 MG TAB PO SCH (06:06)
[2019-08-14] MEDS: QUEtiapine 25 MG TAB PO SCH ×2 (06:06→16:45)
[2019-08-14] MEDS: DOCUSATE 100 MG CAP PO SCH (06:07)
[2019-08-14] MEDS: LEVOTHYROXINE 25 MCG TAB PO SCH (06:07)
[2019-08-14] MEDS: ESCITALOPRAM 10 MG TAB PO SCH (06:07)
[2019-08-14] MEDS ORDERED: ASPIRIN 81 MG PO SCH (09:00)
[2019-08-14] MEDS ORDERED: METOPROLOL TARTRATE 12.5 MG TAB PO SCH (09:00)
[2019-08-14] MEDS: HEPARIN SODIUM,PORCINE 5,000 UNIT/ML 1 ML VIAL SQ SCH ×2 (09:55→16:28)
[2019-08-14 12:00] VITALS: BMI 17.5
[2019-08-14] MEDS: LOSARTAN 50 MG TAB PO SCH (12:48)
--- NOTE | 2019-08-14 15:16 | P.PN ---
Subjective Progress Note Date: 08/14/19 this is a pleasant 83-year-old female with known history of Alzheimer's dementia, hypothyroidism, hypertension, who presented to the hospital with symptoms of chest discomfort. She had been seen in consultation yesterday by Dr. CAMI Duenas in his nurse practitioner. They had requested yesterday for a d-dimer to be performed, he came back at 1.03.dynamically the patient is stable today, overall no complaints. Because of the abnormality in the d-dimer, we will request a CTA of the chest be performed to rule out the possibility of pulmonary embolism. Objective - Vital Signs Vital signs: Vital Signs Temp 99 F 08/14/19 12:00 Pulse 61 08/14/19 12:00 Resp 16 08/14/19 12:00 BP 143/67 08/14/19 12:00 Pulse Ox 95 08/14/19 12:00 Intake & Output 08/13/19 08/14/19 08/14/19 18:59 06:59 18:59 Intake Total 222 Output Total 200 Balance 22 Weight 68.039 kg 42.1 kg 42.1 kg Intake: Oral 222 Output: Urine 200 Other: Voiding Method Incontinent # Voids 2 - Exam PHYSICAL EXAMINATION: GENERAL:43-year-old female in no acute distress at the time of my examination HEENT: Head is atraumatic, normocephalic. Pupils equal, round. Sclera anicteric. Conjunctiva are clear. Mucous membranes of the mouth are moist. Neck is supple. There is no elevated jugular venous pressure.no carotid bruit is heard. HEART EXAMINATION: [Heart S1, S2 systolic ejection murmur is heard.] CHEST EXAMINATION:[ Lungs are clear to auscultation and precussion. No chest wall tenderness is noted on palpation or with deep breathing.] ABDOMEN: [ Soft, nontender. Bowel sounds are heard. No organomegaly noted]. EXTREMITIES:[ 2+ peripheral pulses with no evidence of peripheral edema and no calf tenderness noted]. NEUROLOGIC [patient is awake, alert, confused - Labs CBC & Chem 7: 08/12/19 19:58 08/13/19 07:47 Assessment and Plan Plan: assessment and plan #1 atypical chest pain with negative troponins 3. D-dimer came back elevated at 1.03 #2 hypertension #3 hyperlipidemia #4 hypothyroidism #5 Alzheimer's dementia #6 echocardiogram with Doppler study has been requested and is yet pending. Plan we will review the echocardiogram with Doppler study. We will also request a CAT scan of the chest be performed to rule out possibility of pulmonary embolism. DNP note has been reviewed, I agree with a documented findings and plan of care. Patient was seen and examined.
--- NOTE | 2019-08-14 15:29 | P.DS ---
Providers Date of admission: 08/12/19 21:50 Expected date of discharge: 08/14/19 Attending physician: Farzana Diaz MD Consults: 08/12/19 21:50 Consult Physician Routine Consulting Provider: [facility] Consult Reason/Comments: CP Do you want consulting provider notified?: Yes Primary care physician: [facility] Course: 83-year-old female with PMH of Alzheimer's dementia, hypothyroidism presented to the ED from an adult foster care facility due to chest pain. When she arrived at the ED, her chest pain had resolved. Troponins was less than 0.012, EKG nikki wing normal sinus rhythm. Chest x-ray showed no acute changes. Cardiology was consulted and recommended obtaining d-dimer, echocardiogram. D-dimer is slightly elevated at 1.03. Lipid panel showed elevated HDL of 97, total cholesterol 168 and LDL of 60. Cardiology recommended the addition of metoprolol and losartan. She was continued on aspirin 81 mg by mouth daily. Patient was seen and examined. No acute events overnight. Patient reports resolution of her chest pain. She is alert and oriented 2, suspected baseline. Patient seems preoccupied about her breakfast. She denies any shortness of breath or palpitations. No nausea or vomiting. No fever or chills. General: [non toxic], [no distress], [appears at stated age] Derm: [warm], [dry] Head: [atraumatic], [normocephalic], [symmetric] Eyes: [EOMI], [no lid lag], [anicteric sclera] Mouth: [no lip lesion], [mucus membranes moist] Cardiovascular: [S1S2 reg], [systolic murmur], [positive DP pulse bilateral], Lungs: [CTA bilateral], [no rhonchi, no rales] , [no accessory muscle use] Abdominal: [soft], [ nontender to palpation], [no guarding], [no appreciable organomegaly] Ext: [no gross muscle atrophy], [no edema], [no contractures] Neuro: [no focal neuro deficits] Psych: [Alert and oriented 2] Chest pain Hypertension Hypothyroidism Systolic murmur Alzheimer's dementia Troponin is less than 0.0123 with EKG showing normal sinus rhythm, ACS ruled out. D-dimer +1.03. Chest x-ray negative. Plans: Cardiology recommendations for elevated d-dimer. Follow echocardiogram. Continue aspirin. Continue beta jv. Telemetry monitoring. BP 139/68. Plans: Continue metoprolol. Continue losartan. Monitor vitals, adjust medications as necessary. Plans: Resume Synthroid. Plans: Follow echocardiogram. Plans: Resume Aricept. Plans for DC back to adult foster home. [CTA chest ordered. Echocardiogram ordered. Plans to DC back to adult foster home as both within normal limits.] Pertinent Studies: Chest x-ray, echocardiogram, CTA chest Patient Condition at Discharge: Stable Plan - Discharge Summary Discharge Rx Participant: No New Discharge Prescriptions: New Aspirin 81 mg PO DAILY #30 chew Losartan [Cozaar] 50 mg PO DAILY #30 tab Metoprolol Tartrate [Lopressor] 12.5 mg PO DAILY #30 tab Continue Latanoprost Ophth [Xalatan 0.005%] 1 drops BOTH EYES HS@1900 Levothyroxine Sodium [Tirosint] 25 mcg PO DAILY@0700 QUEtiapine [SEROquel] 37.5 mg PO DAILY@0700 Donepezil [Aricept] 10 mg PO DAILY@0700 QUEtiapine [SEROquel] 50 mg PO DAILY@1600 Ibuprofen [Motrin] 400 mg PO QID@04,10,16,22 Escitalopram [Lexapro] 10 mg PO DAILY@0700 Cholecalciferol (Vitamin D3) [Vitamin D3] 2,000 unit PO DAILY@0700 Docusate [Colace] 100 mg PO DAILY@0700 Evaristo/D3/Mag11/Zinc/Veneer Drier Tailer/Trevor/Bor [Caltrate 600+D Plus Tablet] 1 tab PO DAILY@0700 Discharge Medication List Latanoprost Ophth [Xalatan 0.005%] 1 drops BOTH EYES HS@1900 03/07/16 [History] Levothyroxine Sodium [Tirosint] 25 mcg PO DAILY@0700 03/07/16 [History] Donepezil [Aricept] 10 mg PO DAILY@0700 05/14/19 [History] QUEtiapine [SEROquel] 37.5 mg PO DAILY@0700 05/14/19 [History] Evaristo/D3/Mag11/Zinc/Veneer Drier Tailer/Trevor/Bor [Caltrate 600+D Plus Tablet] 1 tab PO DAILY@0700 08/12/19 [History] Cholecalciferol (Vitamin D3) [Vitamin D3] 2,000 unit PO DAILY@0700 08/12/19 [History] Docusate [Colace] 100 mg PO DAILY@0700 08/12/19 [History] Escitalopram [Lexapro] 10 mg PO DAILY@0700 08/12/19 [History] Ibuprofen [Motrin] 400 mg PO QID@04,10,16,22 08/12/19 [History] QUEtiapine [SEROquel] 50 mg PO DAILY@1600 08/12/19 [History] Aspirin 81 mg PO DAILY #30 chew 08/14/19 [Rx] Losartan [Cozaar] 50 mg PO DAILY #30 tab 08/14/19 [Rx] Metoprolol Tartrate [Lopressor] 12.5 mg PO DAILY #30 tab 08/14/19 [Rx] Follow up Appointment(s)/Referral(s): Alphonso Berrios MD [Primary Care Provider] - 1-2 days Dinora Duenas MD [STAFF PHYSICIAN] - 1 Week (Office will call with follow up appointment. ) Activity/Diet/Wound Care/Special Instructions: Diet: Cardiac Follow-up PCP within 3 days of discharge. Follow-up cardiology within 1 week of discharge. Take all medications as advised. Come back to the ED or call 911 for worsening chest pain, dizziness, shortness of breath or palpitations. Discharge Disposition: HOME SELF-CARE
--- NOTE | 2019-08-14 16:00 | CT ---
EXAMINATION TYPE: CT angio chest DATE OF EXAM: 08/14/2019 COMPARISON: Chest x-ray 2 days ago HISTORY: R/O PE, SOB CT DLP: 277.5 mGycm. Automated Exposure Control for Dose Reduction was Utilized. CONTRAST: CTA scan of the thorax is performed with IV Contrast, patient injected with 80 mL of Isovue 370, pulm onary embolism protocol. MIP Images are created on CT scanner and reviewed. FINDINGS: LUNGS: Respiratory motion artifact that recommendation is seen making evaluation suboptimal particula rly for subcentimeter nodules. There are tiny air trace bilateral effusions with associated compressi ve atelectasis. Some bibasilar linear scarring and/or atelectasis. No suspicious focal consolidation or infiltrate. No pneumothorax. No suspicious masses. MEDIASTINUM: There is satisfactory enhancement of the pulmonary artery and its branches, there is no CT evidence for pulmonary embolism. Enlarged main pulmonary artery, CT findings consistent with under lying pulmonary hypertension. There are no greater than 1 cm hilar or mediastinal lymph nodes. No c ardiomegaly or pericardial effusion is seen. OTHER: Moderate compression fracture L1 level presumed chronic atherosclerosis. Mild chronic compress ion fracture though present T12 level with prominent superior Schmorl node. There is additional mild presumed chronic compression fracture T3 level. IMPRESSION: No CT evidence for acute pulmonary embolism. No suspicious acute pulmonary infiltrate.
[2019-08-14 16:22] VITALS: BP 157/69; PULSE 58; TEMP 98.7
--- NOTE | 2019-08-15 07:14 | ECHOF ---
Referral Reason:chest pain MEASUREMENTS -------- HEIGHT: 154.9 cm WEIGHT: 41.7 kg BP: 136/63 RVIDd: 2.6 cm (< 3.3) IVSd: 1.2 cm (0.6 - 1.1) LVIDd: 2.9 cm (3.9 - 5.3) LVPWd: 1.4 cm (0.6 - 1.1) IVSs: 1.6 cm LVIDs: 1.7 cm LVPWs: 1.6 cm LAESV Index (A-L): 19.09 ml/m Ao Diam: 3.0 cm (2.0 - 3.7) AV Cusp: 2.0 cm (1.5 - 2.6) LA Diam: 1.9 cm (2.7 - 3.8) MV EXCURSION: 15.063 mm (> 18.000) MV EF SLOPE: 90 mm/s (70 - 150) EPSS: 0.3 cm MV E Prem: 0.65 m/s MV DecT: 242 ms MV A Prem: 0.92 m/s MV E/A Ratio: 0.71 AV maxP.16 mmHg AV meanP.23 mmHg AR PHT: 478 ms RAP: 5.00 mmHg RVSP: 34.92 mmHg FINDINGS -------- Sinus rhythm. This was a technically adequate study. The left ventricular size is normal. There is mild concentric left ventricular hypertrophy. Overa ll left ventricular systolic function is normal with, an EF between 55 - 60 %. The diastolic fillin g pattern is normal for the age of the patient 8.05. The right ventricle is normal in size. Normal LA size by volume 22+/-6 ml/m2. The right atrium was not well visualized. Interatrial and interventricular septum intact. There is [id number] aortic regurgitation. There is mild aortic stenosis present. Peak/mean gradient across the Aortic Valve is 21.16mmHg / 11.23mmHg. Mild mitral annular calcification present. Mild mitral regurgitation is present. Mild tricuspid regurgitation present. Right ventricular systolic pressure is normal at < 35 mmHg. The right ventricular systolic pressure, as measured by Doppler, is 34.92mmHg. There is no pulmonic regurgitation present. The aortic root size is normal. IVC Not well visulized. There is no pericardial effusion. CONCLUSIONS -------- 1. Sinus rhythm. 2. This was a technically adequate study. 3. The left ventricular size is normal. 4. There is mild concentric left ventricular hypertrophy. 5. Overall left ventricular systolic function is normal with, an EF between 55 - 60 %. 6. The diastolic filling pattern is normal for the age of the patient 8.05 7. Normal LA size by volume 22+/-6 ml/m2. 8. There is [id number] aortic regurgitation. 9. There is mild aortic stenosis present. 10. Peak/mean gradient across the Aortic Valve is 21.16mmHg / 11.23mmHg. 11. Mild mitral annular calcification present. 12. Mild mitral regurgitation is present. 13. Mild tricuspid regurgitation present. 14. Right ventricular systolic pressure is normal at < 35 mmHg. 15. There is no pulmonic regurgitation present. 16. There is no pericardial effusion. [employer] MACHINE: Madie Demarco RDCS
== END 2019-08-14 17:04 | disposition home or self-care (01) | DRG 313 ==
LOC: EC 19:24 → 3SCARD 21:50 → OBSVTOIN 08-14 13:48
PROVIDERS: ADMIT Internal Medicine; ATTEND Internal Medicine
DX: R07.89 Other chest pain (principal); N17.9 Acute kidney failure, unspecified; I95.9 Hypotension, unspecified; F02.80 Dementia in other diseases classified elsewhere, unspecified severity, without behavioral disturbance, psychotic disturbance, mood disturbance, and anxiety; G30.9 Alzheimer's disease, unspecified; R01.1 Cardiac murmur, unspecified; E03.9 Hypothyroidism, unspecified; E78.5 Hyperlipidemia, unspecified; E86.0 Dehydration; I10 Essential (primary) hypertension; Z88.5 Allergy status to narcotic agent; Z79.890 Hormone replacement therapy; Z79.899 Other long term (current) drug therapy; Z91.81 History of falling; Z90.710 Acquired absence of both cervix and uterus
CPT/HCPCS: 36415; 71046; 71275; 80048; 80053; 80061; 83735; 84484; 85025; 85379; 85610; 85730; 93005; 93306; 96360; 96372; 99285